=== PATIENT | female | born 1945 | race Caucasian/White ===

== ENCOUNTER → 2018-12-17 | Outpatient (REF) | payer MEDICARE, BC ==
[~2018-12-17] MED LIST: ALTACE10 MG PO; AMBIEN10 MG PO; AMLODIPINE5 MG PO; ASPIRIN ADULT L81 M2 PO; ASPIRIN LOW81 M1; AUGMENTIN500TAB PO; COLCHICINE0.6 M2 PO; COUMADIN2 MG PO; COUMADIN4 MG PO; CRESTOR10 MG PO; CRESTOR20 MG PO; CRESTOR5 MG; FISH OIL1000 MG PO; FLEXERIL OR; FLUARIX QUADRIV1 IN2 IM; FLUARIX QUADRIV1 INJ IM; GLIPIZIDE ER5 MG PO; GLUCOPHAGE500 MG PO; GLUCOSAMINE500 M1 PO; HYDROCHLOROT25 MG PO; LORTAB 7.5 PO; LORTAB 7.57.5 MG PO; LYRICA50 MG PO; MEDDOSEPAK PO; MELOXICAM15 MG PO; METFORMIN HCL1000 MG PO; METFORMIN500 MG PO; METOPROL TAR25 MG PO; MILK OF MAG30 ML/UDC PO; MULTI VIT PO; NAPROSYN500 MG OR; NICOTINE21 MG/24 H TD; RESTORIL15 MG PO; ROSUVASTATIN CA10 MG; SOMA350 MG PO; TRAMADOL HCL50 MG PO; VOLTAREN75 M1 PO; WAL-FEX D 1212 HOUR PO; XARELTO20 MG PO
[2018-12-17 08:29] LABS: HEMATOCRIT 43.9 % (37.0-47.0); HEMOGLOBIN 13.4 g/dl (12.0-16.0); MEAN CELL VOLUME 93.6 fL CALC (80.0-100.0); MEAN CORPUSCULAR HGB 28.6 pG CALC (26.0-32.0); MEAN CORPUSCULAR HGB CONC 30.5 g/L CALC (32.0-36.0); RED BLOOD COUNT 4.69 mill/uL (4.20-5.60); RED CELL DISTRI WIDTH 13.7 % (11.5-15.5)
[2018-12-17 09:05] LABS: ALBUMIN 3.6 g/dL (3.2-5.0); ALKALINE PHOSPHATASE 68 u/l (38-126); ANION GAP 13 (6-22 (CALC)); BILIRUBIN, TOTAL 0.4 mg/dL (0.0-1.4); BUN 20 mg/dL (8-23); BUN/CREATININE RATIO 25 (12-20 (CALC)); CALCULATED LDLCHOLESTEROL 34 mg/dL (62-129 (CALC)); CARBON DIOXIDE 26 mmol/l (22-30); CHLORIDE 104 mmol/l (95-108); CHOLESTEROL HDL RATIO 2.2 (<4.4 (CALC)); CREATININE 0.8 mg/dL (0.5-1.0); GFR > 60 ML/MIN (>=60 (CALC)); GFR FOR AFR.AMER. > 60 ML/MIN (>=60 (CALC)); HDL CHOLESTEROL 52 mg/dL (>=40); POTASSIUM 4.6 mmol/l (3.5-5.1); SGOT/AST 29 u/l (9-36); SODIUM 139 mmol/l (137-146); TOTAL CHOLESTEROL 115 mg/dl (0-199); TOTAL PROTEIN 6.1 g/dL (6.3-8.2); TOTAL TRIGLYCERIDES 144 mg/dl (30-149); VLDL CHOLESTROL 29 mg/dl (0-48 (CALC))
[2018-12-17 09:30] LABS: TSH, 3RD GENERATION 2.48 uIU/mL (0.47 - 4.68)
== END | disposition home or self-care (01) ==
LOC: LAB 06:53
PROVIDERS: ATTEND Nurse Practitioner
DX: D50.9 Iron deficiency anemia, unspecified (principal); E11.69 Type 2 diabetes mellitus with other specified complication; E78.2 Mixed hyperlipidemia; I10 Essential (primary) hypertension

== ENCOUNTER 2021-02-26 12:54 | Emergency (ER) | payer MEDICARE, BC ==
[~2021-02-26] VITALS: Ht 162.6 cm; Wt 90.0 kg
[~2021-02-26 12:54] MED LIST changes: -ROSUVASTATIN CA10 MG; +ROSUVASTATIN CA10 MG PO
[2021-02-26 15:54] LABS: IMMATURE GRANULOCYTES 0.2 % (0.0-5.0); MEAN CELL VOLUME 87.5 fL CALC (80.0-100.0); MEAN CORPUSCULAR HGB 27.9 pG CALC (26.0-32.0); MEAN CORPUSCULAR HGB CONC 31.9 g/dL CAL (32.0-36.0); NEUT# 5.61 thou/uL (2.00-7.15); RED BLOOD COUNT 5.37 mill/uL (4.20-5.60); RED CELL DISTRI WIDTH 13.9 % (11.5-15.5)
[2021-02-26 16:34] LABS: ALBUMIN 3.6 g/dL (3.2-5.0); ALKALINE PHOSPHATASE 68 u/l (38-126); ANION GAP 12 (6-22 (CALC)); BILIRUBIN, TOTAL 0.6 mg/dL (0.0-1.4); BUN 19 mg/dL (8-23); BUN/CREATININE RATIO 22 (12-20 (CALC)); CARBON DIOXIDE 27 mmol/l (22-30); CHLORIDE 101 mmol/l (95-108); CREATININE 0.9 mg/dL (0.5-1.0); GFR > 60 ML/MIN (>=60 (CALC)); GFR FOR AFR.AMER. > 60 ML/MIN (>=60 (CALC)); LIPASE 308 u/l (23-300); SGOT/AST 29 u/l (9-36); SODIUM 135 mmol/l (137-146); TOTAL PROTEIN 6.5 g/dL (6.3-8.2)
[2021-02-26 16:46] LABS: MYOGLOBIN 95 ng/mL (0 - 62)
[2021-02-26 17:00] VITALS: BP 145/77
[2021-02-26 18:01] LABS: URINE BLOOD DIPSTICK NEGATIVE (NEGATIVE); URINE COLOR YELLOW; URINE GLUCOSE - DIPSTICK NEGATIVE (NEGATIVE); URINE KETONE 15 mg/dL (NEGATIVE); URINE LEUK ESTERASE NEGATIVE (NEGATIVE); URINE PROTEIN - DIPSTICK 100 mg/dL (NEG-TRACE)
[2021-02-26 18:03] LABS: URINE BILIRUBIN - DIPSTICK NEGATIVE (NEGATIVE); URINE NITRITE - DIPSTICK NEGATIVE (Negative)
[2021-02-26 18:04] LABS: URINE RBC 0-2 RBC/hpf (0-5); URINE SQUAMOUS EPITHELIAL CELL FEW EPI/hpf (0-FEW); URINE WBC 0-2 WBC/hpf (0-5)
== END 2021-02-26 17:40 | disposition short-term general hospital (02) ==
LOC: ED 12:54
PROVIDERS: Emergency Medicine
DX: C79.31 Secondary malignant neoplasm of brain (principal); C34.90 Malignant neoplasm of unspecified part of unspecified bronchus or lung; G93.6 Cerebral edema; E11.9 Type 2 diabetes mellitus without complications; I25.10 Atherosclerotic heart disease of native coronary artery without angina pectoris; E78.5 Hyperlipidemia, unspecified; F17.200 Nicotine dependence, unspecified, uncomplicated; Z79.84 Long term (current) use of oral hypoglycemic drugs; Z86.711 Personal history of pulmonary embolism; Z86.74 Personal history of sudden cardiac arrest; Z79.01 Long term (current) use of anticoagulants; Z95.810 Presence of automatic (implantable) cardiac defibrillator; Z20.822 Contact with and (suspected) exposure to COVID-19

== ENCOUNTER 2021-04-06 03:36 | Observation (INO) | payer MEDICARE, BC, OTHER ==
[~2021-04-06] VITALS: Ht 162.6 cm; Wt 78.0 kg
--- NOTE | 2021-04-06 03:45 | NUR ---
PT TO ROOM BY EMS. A/O. PWD. VSS. TRIAGED AT BEDSIDE. BS [facility]. PT STATES HER NEIGHBOR KNOWS HER MEDS AND HX AND TO GET THE INFO FROM HER. NEIGHBOR NOT HERE YET. UNABLE TO DO MED REC AT THIS TIME.
--- NOTE | 2021-04-06 04:52 | NUR ---
[facility] PROVIDED THEN PT PLACED ON BED KU FOR URINE COLLECTION, URINE COLLECTED AND PORT URINE COLLECTION [facility] PROVIDED, PT TO RADIOLOGY AT THIS TIME
[2021-04-06 05:04] LABS: IMMATURE GRANULOCYTES 2.6 % (0.0-5.0); MEAN CORPUSCULAR HGB 28.4 pG CALC (26.0-32.0); MEAN CORPUSCULAR HGB CONC 35.2 g/dL CAL (32.0-36.0); NEUT# 14.29 thou/uL (2.00-7.15); RED BLOOD COUNT 4.4 mill/uL (4.20-5.60); RED CELL DISTRI WIDTH 12.8 % (11.5-15.5)
[2021-04-06 05:05] LABS: URINE BILIRUBIN - DIPSTICK NEGATIVE (NEGATIVE); URINE BLOOD DIPSTICK MODERATE (NEGATIVE); URINE COLOR YELLOW; URINE GLUCOSE - DIPSTICK >=1000 mg/dL (NEGATIVE); URINE KETONE 15 mg/dL (NEGATIVE); URINE PH 5.5 (4.5-8.0); URINE PROTEIN - DIPSTICK NEGATIVE (NEG-TRACE); URINE UROBILINOGEN - DIPSTICK 0.2 E.U./dL (0.2)
[2021-04-06 05:05] LABS: HEMATOCRIT 35.5 % (37.0-47.0); HEMOGLOBIN 12.5 g/dl (12.0-16.0); MEAN CELL VOLUME 80.7 fL CALC (80.0-100.0)
[2021-04-06 05:11] LABS: URINE NITRITE - DIPSTICK NEGATIVE (Negative)
[2021-04-06 05:12] LABS: URINE LEUK ESTERASE SMALL (NEGATIVE); URINE RBC 25-50 RBC/hpf (0-5)
[2021-04-06 05:13] LABS: URINE BACTERIA MODERATE hpf; URINE EPITHELIAL CELLS MODERATE EPI/hpf (0-FEW)
[2021-04-06 05:29] LABS: BILIRUBIN, TOTAL 0.5 mg/dL (0.0-1.4); CREATININE 1.3 mg/dL (0.5-1.0)
[2021-04-06 05:34] LABS: ALBUMIN 2.6 g/dL (3.2-5.0); POTASSIUM 5.3 mmol/l (3.5-5.1)
[2021-04-06 05:50] LABS: PROTHROMBIN TIME 10.3 SECONDS (9.0-12.5)
--- NOTE | 2021-04-06 06:04 | NUR ---
PT REMAINS IN RADIOLOGY MD AWARE OF ELEVATED BS PER LAB, WILL MEDICATE UPON RETURN FROM RADIOLOGUY
--- NOTE | 2021-04-06 06:45 | NUR ---
PT BACK FROM RADIOLOGY, MEDICATED ORDERED AND IVF INFUSING, NO NEW COMPLAINTS OFFERED, PT BACK ON BEDPAN, CALL UNDERWOOD WITHIN REACH, INSTRUCTED TO CALL WHEN DONE.
[2021-04-06 08:14] LABS: ANION GAP 14 (6-22 (CALC)); BUN 45 mg/dL (8-23); BUN/CREATININE RATIO 43 (12-20 (CALC)); CARBON DIOXIDE 14 mmol/l (22-30); CHLORIDE 104 mmol/l (95-108); GFR 54 ML/MIN (>=60 (CALC)); GFR FOR AFR.AMER. > 60 ML/MIN (>=60 (CALC)); SODIUM 127 mmol/l (137-146)
--- NOTE | 2021-04-06 08:20 | NUR ---
ACCUCHECK RESULTING IN CRICTICALLY HIGH. DR LEE NOTIFIED. ORDERED TO NOT REPEAT GLUCOSE LAB. ORDERS FOR COVERAGE TO BE OBTAINED
[2021-04-06] MEDS ORDERED: DEXAMETHASON4 MG PO (08:25)
[2021-04-06] MEDS ORDERED: ALTACE10 MG PO (08:25)
[2021-04-06] MEDS ORDERED: NORVASC5 M1 PO (08:26)
[2021-04-06] MEDS ORDERED: FAMOTIDINE20 M1 PO (08:26)
[2021-04-06] MEDS ORDERED: LASIX 20 MG TAB20 MG PO (08:26)
[2021-04-06] MEDS ORDERED: FERROUS SULF325 M3 PO (08:27)
--- NOTE | 2021-04-06 08:32 | NUR ---
report called to floor
--- NOTE | 2021-04-06 08:33 | NUR ---
PT ARRIVED TO [facility] ROOM 279 VIA STRETCHER ACCOMPAINED BY ER STAFF. PT AMBULATED TO BED WITH ASSISTANCE. PT IS A/O X3, FLAT AFFECT NOTED. ASSESSMENT AND VITALS COMPLETED. BP 125/61, HR 78, O2 96% ON ROOM AIR. RESPIRATIONS SHALLOW WITH NO DISTRESS. HEART RHYTH NORMAL WITH TELE IN PLACE, PACED PER ER MONITORING. 8613. BOWEL SOUNDS ARE ACTIVE, LAST BM 04/05/21. PEDAL PULSES WEAK. CUT NOTED UNDER RIGHT PINKY TOE, PHOTOS OBTAINED. PT REFUSES TO TURN TO ASCULTATE LUNG SOUNDS AND SKIN, STATES " I DONT HAVE ANY ENERGY."#22G RAC INFUSING WITH IVF PER ORDER, SITE REMAINS HEALTHY AND PATENT. #20G LW FLUSHED, SITE APPEARS HEALTHY AND PATENT. PT STATES SHE HAS PAIN IN RIGHT FOOT WHEN AMBULATING. PT STATES SHE WAS RECENTLY IN [facility] IN [facility]BRU[facility] FOR BRAIN TUMOR REMOVAL AND HAS RECIEVED HER LAST RADIATION FOR LUNG CANCER ON 04/05/21.FIGURE SKATER AWARE OF RECENT FALL AT HOME. PT INSTRUCTED TO CALL FOR ASSISTANCE BEFORE GETTING OUT OF BED. PT VERBALIZED UNDERSTANDING. NKDA NOTED, FALL RISK AND ALLERGY BAND APPLIED. PT DENIES OF ANY NEEDS AT THIS TIME. DIETARY CALLED FOR BREAKFAST TRAY. ALL SAFETY PRECAUTIONS ARE IN PLACE WITH CALL LIGHT IN REACH. WILL CONTINUE TO MONITOR.
--- NOTE | 2021-04-06 08:40 | NUR ---
ACCUCHECK RESULTING IN CRICTICALLY HIGH. DR LEE NOTIFIED. ORDERED TO NOT REPEAT GLUCOSE LAB. ORDERS FOR COVERAGE TO BE OBTAINED
--- NOTE | 2021-04-06 09:14 | NUR ---
DR LEE AT BEDSIDE
[2021-04-06 11:00] VITALS: BP 125/61
--- NOTE | 2021-04-06 12:06 | NUR ---
PT RESTING IN SEMI FOWLERS POSITION. PT REMAINS A/O X3. RESPIRATIONS EVEN AND UNLABORED. #22G RA INFUSING WITH IVF PER ORDER, SITE REMAINS HEALTHY AND PATENT. PUREWHICK CATH APPLIED. PT TOLERATING WELL. ACCUCHECK REMAINS CRITICALLY HIGH. REX SANCHEZRP NOTIFIED. SCHEDULED COVERAGE ADMINISTERED.TELE -MONTORING IN PLACE. ALL SAFETY PERCAUTIONS ARE IN PLACE. WILL CONTINUE TO MONITOR.
--- NOTE | 2021-04-06 13:22 | NUR ---
REASSESSMENT OF ACCUCHECK RESULTING IN 443. REX SANCHEZRP NOTIFIED. NO NEW ORDERS OBTAINED. NEIGHBOR AT BEDSIDE. WILL CONTINUE TO MONITOR.
[2021-04-06 14:51] VITALS: BP 107/58
--- NOTE | 2021-04-06 15:49 | NUR ---
PT SLEEPING IN LOW FOWLERS POSITION. RESPIRATIONS ARE EVEN AND UNLABORED WITH NO DISTRESS NOTED. #20G RAC REMAINS IN PLACE. #20G EMS LW INFUSING WITH IVF PER ORDER, SITE REMAINS HEALTHY AND PATENT. TELE MONITORING IN PLACE. NO SIGNS OF ANY PAINS OR DISCOMFORTS. ALL SAFETY PRECAUTIONS ARE IN PLACE. WILL CONTINUE TO MONITOR.
--- NOTE | 2021-04-06 17:10 | NUR ---
ACCUCHECK REMARYING IN 270. COVERAGE ADMINISTERED. PT DENIES OF ANY NEEDS. WILL CONTINUE TO MONITOR
[2021-04-06 19:00] VITALS: BP 116/64
--- NOTE | 2021-04-06 19:10 | NUR ---
REPORT RECEIVED FROM Gian MCHUGH LPN, CARE OF PT ASSUMED AT THIS TIME.
--- NOTE | 2021-04-06 20:00 | NUR ---
POINT OF CARE GLUCOSE 225 mg/dl REPORTED BY Eugenio GOODRICH CNA.
--- NOTE | 2021-04-06 20:30 | NUR ---
PT SITTING UP AT SIDE OF BED. L-WRIST #20G IV LEAKING. DRESSING REMOVED. CATHETER TIGHTENED AND NEW DRESSING APPLIED. IV PATENT, FLUSHES WELL WITH GOOD BLOOD RETURN/ NO FURTHER LEAKING NOTED AT THIS TIME. IV INFUSING NS @ 75ML/H. PHYSICAL ASSESMENT COMPLETED, SEE SHIFT ASSESMENT. TELE #[id number] ON, RYTHM PACED AT 77 REPORTED BY Janet PLATT, OPTOMETRIC AIDE. PLAN OF CARE REVIEWED WITH PT, PT VERBALIZES UNDERSTANDING. PT ASSISTED TO BSC AND ASSITED BACK TO BED BY Eugenio GOODRICH CNA. SMALL SOLID BM REPORTED. PT DENIES FURTHER NEEDS AT THIS TIME. CALL UNDERWOOD WITHIN REACH, AGREES TO CALL PRN.
--- NOTE | 2021-04-06 21:10 | NUR ---
SCHEDULED MEDICATIONS ADMINISTERED, SEE E-MAR. PT DENIES FURTHER NEEDS AT THIS TIME. CALL UNDERWOOD WITHIN REACH, AGREES TO CALL PRN.
[2021-04-07] VITALS: BP 100/61
--- NOTE | 2021-04-07 01:09 | NUR ---
PT APPEARS TO BE SLEEPING COMFORTABLY. LAYING IN BED, EYES CLOSED, SNORING GENTLY. RESPIRATIONS REGULAR AND UNLABORED. CALL UNDERWOOD REMAINS WITHIN REACH.
--- NOTE | 2021-04-07 01:58 | NUR ---
PT ASSITED TO BSC AND BACK TO BED.
--- NOTE | 2021-04-07 01:59 | NUR ---
WARM BLANKET PROVIDED, PT DENIES FURTHER NEEDS AT THIS TIME. CALL UNDERWOOD WITHIN REACH.
[2021-04-07 04:00] VITALS: BP 107/54
--- NOTE | 2021-04-07 04:50 | NUR ---
Cammy BUITRAGO FORESTRY FIRE AID IN ROOM COLLECTING BLOOD WORK.
[2021-04-07 06:07] LABS: HEMOGLOBIN 11.6 g/dl (12.0-16.0); MEAN CELL VOLUME 80.7 fL CALC (80.0-100.0); MEAN CORPUSCULAR HGB 28.4 pG CALC (26.0-32.0); MEAN CORPUSCULAR HGB CONC 35.2 g/dL CAL (32.0-36.0); RED BLOOD COUNT 4.09 mill/uL (4.20-5.60); RED CELL DISTRI WIDTH 12.9 % (11.5-15.5)
[2021-04-07 06:16] LABS: ANION GAP 7 (6-22 (CALC)); BUN 32 mg/dL (8-23); BUN/CREATININE RATIO 44 (12-20 (CALC)); CHLORIDE 104 mmol/l (95-108); CREATININE 0.7 mg/dL (0.5-1.0); GFR > 60 ML/MIN (>=60 (CALC)); GFR FOR AFR.AMER. > 60 ML/MIN (>=60 (CALC)); MAGNESIUM 1.8 mg/dL (1.6-2.3); POTASSIUM 4.1 mmol/l (3.5-5.1); SODIUM 129 mmol/l (137-146)
[2021-04-07 06:19] LABS: CARBON DIOXIDE 22 mmol/l (22-30)
[2021-04-07 07:30] VITALS: BP 105/45
[2021-04-07 12:18] VITALS: BP 113/54
--- NOTE | 2021-04-07 12:19 | NUR ---
PT SITTING IN BED EATING LUNCH. NO NEEDS AT THIS TIME. CALL LIGHT WITHIN REACH.
--- NOTE | 2021-04-07 14:40 | NUR ---
IV FOUND DISLODGED. IV INTACT. X2 ATTEMPTS, UNSUCCESSFUL. AWAITING ED TO ATTEMPT IV PLACEMENT. D IRASEMA MEDINA NOTIFIED.
--- NOTE | 2021-04-07 16:00 | NUR ---
PT SLEEPING IN BED. NO DISTRESS NOTED. CALL LIGHT WITHIN REACH.
[2021-04-07 18:57] VITALS: BP 116/62
--- NOTE | 2021-04-07 19:00 | NUR ---
REPORT RECEIVED FROM Patricia TUCKER RN, CARE OF PT ASSUMED AT THIS TIME.
--- NOTE | 2021-04-07 19:40 | NUR ---
PT LAYING IN BED WATCHING TV. STATES SHE'S FEELING BETTER TODAY. PHYSICAL ASSESMENT COMPLETED, SEE SHIFT ASSESMENT. R-HAND IV SITE PATENT AND INFUSING NS@75ML/H. SECURED WITH ELASTIC NETTING. PACED ON TELE #[id number] REPORTED BY ED HEALTHCARE ADVISORY SERVICES MANAGER. PUREWICK EXTERNAL CATHETER IN PLACE LO LWS, DRAINING CLEAR YELLOW URINE. ECCHYMOSIS TO L-KNEE. PT REQUEST ASSISTANCE TO TURN ONTO R-SIDE. PT ASSISTED TO R-SIDE LYING POSITION. DENIES FURTHER NEEDS AT THIS TIME. PLAN OF CARE REVIEWED, PT VERBALIZES UNDERSTANDING. CALL UNDERWOOD WITHIN REACH, AGREES TO CALL PRN.
--- NOTE | 2021-04-07 20:00 | NUR ---
POINT OF CARE GLUCOSE 372mg/dl REPORTED BY Janet COHEN CNA.
--- NOTE | 2021-04-07 21:05 | NUR ---
SCHEDULED MEDICATION ADMINISTERED, PRN ULTRAM ADMINISTERED, SEE E-MAR.
[2021-04-07 23:30] VITALS: BP 120/61
[2021-04-08 04:00] VITALS: BP 116/68
--- NOTE | 2021-04-08 04:18 | NUR ---
Minerva BAER DIRECTOR VETERINARY IN ROOM TO COLLECT LAB WORK.
[2021-04-08 05:03] LABS: HEMATOCRIT 33.3 % (37.0-47.0); HEMOGLOBIN 11.7 g/dl (12.0-16.0); MEAN CELL VOLUME 81.2 fL CALC (80.0-100.0); MEAN CORPUSCULAR HGB 28.5 pG CALC (26.0-32.0); MEAN CORPUSCULAR HGB CONC 35.1 g/dL CAL (32.0-36.0); RED BLOOD COUNT 4.1 mill/uL (4.20-5.60); RED CELL DISTRI WIDTH 13.2 % (11.5-15.5)
[2021-04-08 05:27] LABS: ANION GAP 7 (6-22 (CALC)); BUN 20 mg/dL (8-23); BUN/CREATININE RATIO 33 (12-20 (CALC)); CARBON DIOXIDE 23 mmol/l (22-30); CHLORIDE 101 mmol/l (95-108); CREATININE 0.6 mg/dL (0.5-1.0); GFR > 60 ML/MIN (>=60 (CALC)); GFR FOR AFR.AMER. > 60 ML/MIN (>=60 (CALC)); MAGNESIUM 1.6 mg/dL (1.6-2.3); POTASSIUM 3.8 mmol/l (3.5-5.1); SODIUM 128 mmol/l (137-146)
[2021-04-08 07:40] VITALS: BP 135/70
--- NOTE | 2021-04-08 07:40 | NUR ---
PT LAYING IN BED SLEEP. VITALS AND ASSESSMENT DONE. ALERT AND ORIENTED. LUNGS SOUNDS CLEAR. S1 AND S2 HEARD. PEDAL PULSES BILATERALLY AND EQUALLY STRONG. IV PATENT. NO DISTRESS NOTED.
--- NOTE | 2021-04-08 09:30 | NUR ---
Dakota WRIGHT APRN AND DR VILLAFUERTE AT BEDSIDE DISCUSSING POC
[2021-04-08] MEDS ORDERED: SOD CHLORIDE1 G2 PO (09:45)
[2021-04-08] MEDS ORDERED: OMNICEF300 MG PO (09:45)
[2021-04-08] MEDS ORDERED: LEVEMIR100 UNIT SC (09:47)
--- NOTE | 2021-04-08 10:00 | NUR ---
PHYSICAL THERAPY AT BEDSIDE FOR DAILY EVAL
[2021-04-08 11:00] VITALS: BP 122/58
--- NOTE | 2021-04-08 11:15 | NUR ---
Physical Therapy Note: Patient was seen and treated today. Patient identified by full name and date of . Physical Therapy Management: 1. Ankle pumping exercises x 10 repetitions 2. Quad-setting exercises x 10 repetitions 3. Straight leg raise x 5 repetitions 4. Supine to sit, sit to supine 5. Sit to stand and stand to sit 6. Sitting tolerance exercises x 5-10 minutes 7. AROME of the UE x 5-10 repetitions 8. AROME of the LE x 5-10 repetitions 9. Bed to chair transfer. Patient tolerated management well without incidence of dizziness. Patient decised to stay sitting on the recliner after the end of physical therapy session. Call button within patient's reach.
--- NOTE | 2021-04-08 11:50 | NUR ---
PATIENT SITTING IN CHAIR. NO DISTRESS NOTED. CALL LIGHT WITHIN REACH.
--- NOTE | 2021-04-08 12:56 | NUR ---
PER N DAREN RN, PTS HR SUSTAINING [phone]. D IRASEMA BRANTLEYN NOTIFIED, ORDERS FOR 5MG METOPROLOL IV X1 DOSE REC. ORDER WRITTEN AND FAXED TO PHARMACY
--- NOTE | 2021-04-08 13:40 | NUR ---
PER Brandy MERCEDES RN, PT SUSTAINING WITH PACE HR AT [phone].
[2021-04-08 14:53] VITALS: BP 123/55
--- NOTE | 2021-04-08 16:10 | NUR ---
PT LAYING IN BED. NO DISTRESS NOTED. CALL LIGHT WITHIN REACH
--- NOTE | 2021-04-08 16:27 | NUR ---
Discharge instructions given. Patient verbalizes understanding of same. Discharged in stable condition via Medical Transport to [facility] with staff. All belongings sent with pt. PATIENT DENIES HAVING ANYTHING IN HOSPITAL SAFE.
--- NOTE | 2021-04-08 16:55 | NUR ---
REPORT GIVEN TO [facility]
== END 2021-04-08 16:27 ==
LOC: ED 03:36 → ED-I 07:50 → ED 08:10 → MS2 08:11
PROVIDERS: Family Medicine; Nurse Practitioner; ADMIT Internal Medicine; ATTEND Internal Medicine
DX: N39.0 Urinary tract infection, site not specified (principal); E11.65 Type 2 diabetes mellitus with hyperglycemia; N17.9 Acute kidney failure, unspecified; E87.1 Hypo-osmolality and hyponatremia; E87.5 Hyperkalemia; E86.0 Dehydration; I11.0 Hypertensive heart disease with heart failure; I50.9 Heart failure, unspecified; E11.40 Type 2 diabetes mellitus with diabetic neuropathy, unspecified; T38.0X5A Adverse effect of glucocorticoids and synthetic analogues, initial encounter; S20.212A Contusion of left front wall of thorax, initial encounter; S80.02XA Contusion of left knee, initial encounter; C34.90 Malignant neoplasm of unspecified part of unspecified bronchus or lung; C79.31 Secondary malignant neoplasm of brain; I25.10 Atherosclerotic heart disease of native coronary artery without angina pectoris; I48.91 Unspecified atrial fibrillation; E78.5 Hyperlipidemia, unspecified; F17.200 Nicotine dependence, unspecified, uncomplicated; B96.20 Unspecified Escherichia coli [E. coli] as the cause of diseases classified elsewhere; W18.30XA Fall on same level, unspecified, initial encounter; Y92.002 Bathroom of unspecified non-institutional (private) residence as the place of occurrence of the external cause; Z91.81 History of falling; Z79.52 Long term (current) use of systemic steroids; Z86.74 Personal history of sudden cardiac arrest; Z95.810 Presence of automatic (implantable) cardiac defibrillator; Z86.711 Personal history of pulmonary embolism; Z79.84 Long term (current) use of oral hypoglycemic drugs; Z20.822 Contact with and (suspected) exposure to COVID-19
CPT/HCPCS: G0378; Q9967

== ENCOUNTER 2021-08-28 09:47 | Observation (INO) | payer MEDICARE, BC ==
[~2021-08-28] VITALS: Ht 162.6 cm; Wt 74.3 kg
[~2021-08-28 09:47] MED LIST changes: +DEXAMETHASON4 MG PO; +FAMOTIDINE20 M1 PO; +FERROUS SULF325 M3 PO; +LASIX 20 MG TAB20 MG PO; +LEVEMIR100 UNIT SC; +NORVASC5 M1 PO; +OMNICEF300 MG PO; +SOD CHLORIDE1 G2 PO
[2021-08-28 10:51] LABS: GFR > 60 ML/MIN (>=60 (CALC)); GFR FOR AFR.AMER. > 60 ML/MIN (>=60 (CALC))
[2021-08-28 10:54] LABS: HEMATOCRIT 38.5 % (37.0-47.0); HEMOGLOBIN 13.4 g/dl (12.0-16.0); IMMATURE GRANULOCYTES 0.5 % (0.0-5.0); MEAN CELL VOLUME 85.9 fL CALC (80.0-100.0); MEAN CORPUSCULAR HGB 29.9 pG CALC (26.0-32.0); MEAN CORPUSCULAR HGB CONC 34.8 g/dL CAL (32.0-36.0); NEUT# 9.24 thou/uL (2.00-7.15); RED BLOOD COUNT 4.48 mill/uL (4.20-5.60); RED CELL DISTRI WIDTH 15.2 % (11.5-15.5)
[2021-08-28 11:10] LABS: ALBUMIN 2.9 g/dL (3.2-5.0); ALKALINE PHOSPHATASE 86 u/l (38-126); ANION GAP 14 (6-22 (CALC)); BUN 15 mg/dL (8-23); BUN/CREATININE RATIO 17 (12-20 (CALC)); CARBON DIOXIDE 26 mmol/l (22-30); CHLORIDE 94 mmol/l (95-108); CREATININE 0.8 mg/dL (0.5-1.0); GFR > 60 ML/MIN (>=60 (CALC)); GFR FOR AFR.AMER. > 60 ML/MIN (>=60 (CALC)); LIPASE 40 u/l (23-300); POTASSIUM 2.7 mmol/l (3.5-5.1); SGOT/AST 18 u/l (9-36); SODIUM 132 mmol/l (137-146); TOTAL PROTEIN 5.4 g/dL (6.3-8.2)
[2021-08-28] MEDS ORDERED: FARXIGA10 MG PO (13:38)
[2021-08-28] MEDS ORDERED: LEVEMIR100 UNIT SC (13:39)
[2021-08-28] MEDS ORDERED: OZEMPIC2 MG/1.5 M SC (13:39)
[2021-08-28 16:05] VITALS: BP 113/64
[2021-08-28 19:00] VITALS: BP 114/66
[2021-08-29] VITALS: BP 130/58
[2021-08-29 00:46] LABS: URINE BLOOD DIPSTICK TRACE-INTACT (NEGATIVE); URINE COLOR YELLOW; URINE GLUCOSE - DIPSTICK 500 mg/dL (NEGATIVE); URINE KETONE 15 mg/dL (NEGATIVE); URINE LEUK ESTERASE NEGATIVE (NEGATIVE); URINE PROTEIN - DIPSTICK 100 mg/dL (NEG-TRACE); URINE UROBILINOGEN - DIPSTICK 0.2 E.U./dL (0.2)
[2021-08-29 00:53] LABS: URINE BILIRUBIN - DIPSTICK MODERATE (NEGATIVE); URINE NITRITE - DIPSTICK NEGATIVE (Negative)
[2021-08-29 00:56] LABS: URINE BACTERIA MANY hpf; URINE SQUAMOUS EPITHELIAL CELL FEW EPI/hpf (0-FEW); URINE WBC 20-50 WBC/hpf (0-5)
[2021-08-29 04:00] VITALS: BP 126/74
[2021-08-29 04:59] LABS: HEMATOCRIT 34.6 % (37.0-47.0); HEMOGLOBIN 11.7 g/dl (12.0-16.0); IMMATURE GRANULOCYTES 0.5 % (0.0-5.0); MEAN CELL VOLUME 87.8 fL CALC (80.0-100.0); MEAN CORPUSCULAR HGB 29.7 pG CALC (26.0-32.0); MEAN CORPUSCULAR HGB CONC 33.8 g/dL CAL (32.0-36.0); NEUT# 5.43 thou/uL (2.00-7.15); RED BLOOD COUNT 3.94 mill/uL (4.20-5.60); RED CELL DISTRI WIDTH 15.4 % (11.5-15.5)
[2021-08-29 05:17] LABS: BUN 13 mg/dL (8-23); BUN/CREATININE RATIO 19 (12-20 (CALC)); CHLORIDE 102 mmol/l (95-108); CREATININE 0.7 mg/dL (0.5-1.0); GFR > 60 ML/MIN (>=60 (CALC)); GFR FOR AFR.AMER. > 60 ML/MIN (>=60 (CALC)); POTASSIUM 3.1 mmol/l (3.5-5.1); SODIUM 134 mmol/l (137-146)
[2021-08-29 05:18] LABS: ANION GAP 3 (6-22 (CALC)); CARBON DIOXIDE 32 mmol/l (22-30)
[2021-08-29 08:08] VITALS: BP 126/57
[2021-08-29 10:38] VITALS: BP 122/61
[2021-08-29] MEDS ORDERED: METRONIDAZOLE500 MG PO (11:28)
[2021-08-29] MEDS ORDERED: CIPROFLOXACN500 MG PO (11:29)
[2021-08-29] MEDS ORDERED: ZOFRAN4 MG/TAB PO (11:29)
== END 2021-08-29 12:59 | disposition home or self-care (01) ==
LOC: ED 09:47 → ED-I 12:35 → ED 13:21 → MS2 13:22
PROVIDERS: Family Medicine; ADMIT Internal Medicine; ATTEND Internal Medicine
DX: K52.9 Noninfective gastroenteritis and colitis, unspecified (principal); E87.6 Hypokalemia; N28.89 Other specified disorders of kidney and ureter; C34.91 Malignant neoplasm of unspecified part of right bronchus or lung; C79.31 Secondary malignant neoplasm of brain; I11.0 Hypertensive heart disease with heart failure; I50.9 Heart failure, unspecified; E11.40 Type 2 diabetes mellitus with diabetic neuropathy, unspecified; I25.10 Atherosclerotic heart disease of native coronary artery without angina pectoris; E78.5 Hyperlipidemia, unspecified; Z92.3 Personal history of irradiation; Z86.711 Personal history of pulmonary embolism; Z95.810 Presence of automatic (implantable) cardiac defibrillator; Z86.74 Personal history of sudden cardiac arrest; Z79.899 Other long term (current) drug therapy; Z79.84 Long term (current) use of oral hypoglycemic drugs; Z79.4 Long term (current) use of insulin; Z20.822 Contact with and (suspected) exposure to COVID-19
CPT/HCPCS: G0378; J3475; Q9967

== ENCOUNTER 2021-11-03 11:37 | Emergency (ER) | payer MEDICARE, BC, OTHER ==
[~2021-11-03] VITALS: Ht 162.6 cm; Wt 72.0 kg
[~2021-11-03 11:37] MED LIST changes: +AMLODIPINE BESY10 MG PO; +CIPROFLOXACN500 MG PO; +FARXIGA10 MG PO; +METRONIDAZOLE500 MG PO; -NORVASC5 M1 PO; +OZEMPIC2 MG/1.5 M SC; +ZOFRAN4 MG/TAB PO
[2021-11-03] MEDS ORDERED: OXYCODO-APAP1 TA2 PO (12:34)
[2021-11-03] MEDS ORDERED: ASPIRIN 81 LOW81 MG PO (12:36)
[2021-11-03 14:30] LABS: IMMATURE GRANULOCYTES 0.3 % (0.0-5.0); MEAN CORPUSCULAR HGB 29.1 pG CALC (26.0-32.0); MEAN CORPUSCULAR HGB CONC 31.6 g/dL CAL (32.0-36.0); RED BLOOD COUNT 4.75 mill/uL (4.20-5.60); RED CELL DISTRI WIDTH 14.9 % (11.5-15.5)
[2021-11-03 14:33] LABS: HEMATOCRIT 43.7 % (37.0-47.0); HEMOGLOBIN 13.8 g/dl (12.0-16.0)
[2021-11-03 14:42] LABS: ALKALINE PHOSPHATASE 69 u/l (38-126); AMYLASE 78 u/l (30-110); BILIRUBIN, TOTAL 0.8 mg/dL (0.0-1.4); BUN 14 mg/dL (8-23); BUN/CREATININE RATIO 20 (12-20 (CALC)); CHLORIDE 100 mmol/l (95-108); CREATININE 0.7 mg/dL (0.5-1.0); GFR > 60 ML/MIN (>=60 (CALC)); GFR FOR AFR.AMER. > 60 ML/MIN (>=60 (CALC)); LIPASE 51 u/l (23-300); POTASSIUM 3.3 mmol/l (3.5-5.1); SGOT/AST 28 u/l (9-36); SODIUM 136 mmol/l (137-146); TOTAL PROTEIN 6.4 g/dL (6.3-8.2)
[2021-11-03 14:43] LABS: ACT PARTIAL THROMBO TIME 22.8 SECONDS (20.0-32.5); ALBUMIN 3.5 g/dL (3.2-5.0); ANION GAP 16 (6-22 (CALC)); CARBON DIOXIDE 23 mmol/l (22-30); INTERNATIONAL NORMALIZED RATIO 1.1 RATIO (0.7-1.3)
[2021-11-03 18:50] VITALS: BP 127/56
== END 2021-11-03 18:50 | disposition home or self-care (01) ==
LOC: ED 11:37
DX: R11.2 Nausea with vomiting, unspecified (principal); R19.7 Diarrhea, unspecified; E87.6 Hypokalemia; C34.90 Malignant neoplasm of unspecified part of unspecified bronchus or lung; C79.31 Secondary malignant neoplasm of brain; E11.9 Type 2 diabetes mellitus without complications; E78.5 Hyperlipidemia, unspecified; I25.10 Atherosclerotic heart disease of native coronary artery without angina pectoris; F17.200 Nicotine dependence, unspecified, uncomplicated; Z86.711 Personal history of pulmonary embolism; Z86.74 Personal history of sudden cardiac arrest; Z95.810 Presence of automatic (implantable) cardiac defibrillator; Z79.84 Long term (current) use of oral hypoglycemic drugs; Z79.899 Other long term (current) drug therapy; Z20.822 Contact with and (suspected) exposure to COVID-19
CPT/HCPCS: J2997

== ENCOUNTER 2022-04-20 12:40 | Observation (INO) | payer MEDICARE, BC, OTHER ==
[~2022-04-20] VITALS: Ht 162.6 cm; Wt 64.0 kg
[2022-04-20] VITALS (15 sets, daily range): BP systolic 102–145; BP diastolic 37–65
[~2022-04-20 12:40] MED LIST changes: +ASPIRIN 81 LOW81 MG PO; +OXYCODO-APAP1 TA2 PO
--- NOTE | 2022-04-20 12:40 | NUR ---
PT TO ROOM FOR TRIAGE
[2022-04-20 13:37] LABS: HEMATOCRIT 39.8 % (37.0-47.0); HEMOGLOBIN 13.1 g/dl (12.0-16.0); IMMATURE GRANULOCYTES 0.3 % (0.0-5.0); MEAN CORPUSCULAR HGB 28.8 pG CALC (26.0-32.0); MEAN CORPUSCULAR HGB CONC 32.9 g/dL CAL (32.0-36.0); NEUT# 5.28 thou/uL (2.00-7.15); RED BLOOD COUNT 4.55 mill/uL (4.20-5.60); RED CELL DISTRI WIDTH 14.3 % (11.5-15.5)
[2022-04-20 13:43] LABS: GFR FOR AFR.AMER. > 60 ML/MIN (>=60 (CALC)); GFR OTHER RACES > 60 ML/MIN (>=60 (CALC))
[2022-04-20 13:44] LABS: MEAN CELL VOLUME 87.5 fL CALC (80.0-100.0)
[2022-04-20 13:55] LABS: ALKALINE PHOSPHATASE 64 u/l (38-126); BILIRUBIN, TOTAL 0.4 mg/dL (0.0-1.4); BUN 13 mg/dL (8-23); BUN/CREATININE RATIO 19 (12-20 (CALC)); CARBON DIOXIDE 26 mmol/l (22-30); CHLORIDE 101 mmol/l (95-108); CREATININE 0.7 mg/dL (0.5-1.0); LIPASE 44 u/l (23-300); SGOT/AST 17 u/l (9-36); SODIUM 134 mmol/l (137-146); TOTAL PROTEIN 5.2 g/dL (6.3-8.2)
[2022-04-20 14:00] LABS: ANION GAP 10 (6-22 (CALC)); POTASSIUM 3.1 mmol/l (3.5-5.1)
[2022-04-20] MEDS ORDERED: OMEPRAZOLE DR20 MG PO (17:39)
[2022-04-20] MEDS ORDERED: OZEMPIC2 MG/1.5 M IJ (17:40)
[2022-04-20] MEDS ORDERED: FARXIGA10 MG PO (17:42)
--- NOTE | 2022-04-20 17:49 | NUR ---
PT MEDICATED PER DEC; ASSISTED TO BR WITH WALKER WITH STEADY GAIT
--- NOTE | 2022-04-20 19:35 | NUR ---
PT XFER TO RM 280 BEDSIDE REPORT GIVEN. PT VSS
--- NOTE | 2022-04-20 19:45 | NUR ---
PATIENT TRANSPORTED TO UNIT @ 194 VIA WHEELCHAIR. PATIENT SELF TRANFERRED TO BED. AOX3; NO DISTRESS NOTED. VSS. PT HAS NO COMPLAINTS OF PAIN @ THIS TIME. PT ORIENTED TO ROOM AND CALL UNDERWOOD. FALL PRECAUTION EDUCATION PROVIDED. PATIENT STATES UNDERSTANDING. PATIENT REQUESTED SOMETHING TO EAT. EDUCATED PATIENT ON NPO DIET AND POSSIBLE SIDE EFFECTS OF ADHERING TO NPO ORDER. PATIENT STATES UNDERSTANDING. NO FURTHER QUESTIONS OR CONCERNS AT THIS TIME.
[2022-04-20 20:28] LABS: URINE BILIRUBIN - DIPSTICK NEGATIVE (NEGATIVE); URINE BLOOD DIPSTICK NEGATIVE (NEGATIVE); URINE COLOR YELLOW; URINE GLUCOSE - DIPSTICK NEGATIVE (NEGATIVE); URINE KETONE 40 mg/dL (NEGATIVE); URINE LEUK ESTERASE NEGATIVE (NEGATIVE); URINE PH 6.5 (4.5-8.0); URINE PROTEIN - DIPSTICK 30 mg/dL (NEG-TRACE); URINE SPECIFIC GRAVITY 1.015; URINE UROBILINOGEN - DIPSTICK 0.2 E.U./dL (0.2)
[2022-04-20 20:32] LABS: URINE NITRITE - DIPSTICK NEGATIVE (Negative)
[2022-04-20 20:33] LABS: URINE SQUAMOUS EPITHELIAL CELL FEW EPI/hpf (0-FEW)
--- NOTE | 2022-04-21 00:52 | NUR ---
PATIENT SLEEPING AT THIS TIME. NO DISTRESS NOTED. FALL PRECAUTIONS IN PLACE.
[2022-04-21 03:46] VITALS: BP 136/46
--- NOTE | 2022-04-21 04:51 | NUR ---
PATIENT C/O PAIN IN ABD RATED 6/10. EDUCATED PATIENT ON NEXT DOSE TIME FOR PAIN MEDICATION. PATIENT REPOSITIONED TO RELIEVE PAIN.
[2022-04-21 04:57] VITALS: BP 136/46
[2022-04-21 05:50] LABS: HEMATOCRIT 37.8 % (37.0-47.0); HEMOGLOBIN 12.3 g/dl (12.0-16.0); MEAN CELL VOLUME 88.9 fL CALC (80.0-100.0); MEAN CORPUSCULAR HGB 28.9 pG CALC (26.0-32.0); MEAN CORPUSCULAR HGB CONC 32.5 g/dL CAL (32.0-36.0); RED BLOOD COUNT 4.25 mill/uL (4.20-5.60); RED CELL DISTRI WIDTH 14.5 % (11.5-15.5)
[2022-04-21 06:20] VITALS: BP 122/43
[2022-04-21 06:38] LABS: ANION GAP 7 (6-22 (CALC)); BUN 9 mg/dL (8-23); BUN/CREATININE RATIO 13 (12-20 (CALC)); CARBON DIOXIDE 26 mmol/l (22-30); CHLORIDE 106 mmol/l (95-108); CREATININE 0.7 mg/dL (0.5-1.0); GFR FOR AFR.AMER. > 60 ML/MIN (>=60 (CALC)); GFR OTHER RACES > 60 ML/MIN (>=60 (CALC)); MAGNESIUM 1.5 mg/dL (1.6-2.3); POTASSIUM 3.1 mmol/l (3.5-5.1); SODIUM 137 mmol/l (137-146)
--- NOTE | 2022-04-21 07:00 | NUR ---
RECEIVE REPORT FROM VIET BERNSTEIN.
--- NOTE | 2022-04-21 08:00 | NUR ---
PATIENT ALERT AND ORIENTED X3. VITAL SIGNS STABLE AT THIS TIME. PATIENT RESTING IN BED PLEASANT. PT IS EDUCATED ABOUD MEDICATIONS AND NURSING PLAN FOR TODAY. SHE REFER UNDERSTAND. FALL AND SAFETY PRECAUTIONS IN PLACE. CALL LIGHT WITHIN REACH.
[2022-04-21 10:39] VITALS: BP 121/50
[2022-04-21] MEDS ORDERED: ACID CONTROL MA20 MG PO (11:54)
[2022-04-21] MEDS ORDERED: ZOFRAN4 MG/TAB PO (11:54)
[2022-04-21] MEDS ORDERED: TRAMADOL HYDROC50 M1 PO (11:54)
[2022-04-21] MEDS ORDERED: M2 MAGNESIUM100 MG PO (11:55)
[2022-04-21] MEDS ORDERED: VITAMIN D1000 UNIT PO (11:55)
--- NOTE | 2022-04-21 12:22 | NUR ---
PATIENT RESTING IN BED. STABLE AT THIS TIME.
--- NOTE | 2022-04-21 13:29 | NUR ---
PATIENT IS DISCHARGED STABLE AT THIS TIME. PT IS EDUCATED ABOUD MEDICATIONS AT HOME AND DOCTORS FOLLOW UP. PT REFER UNDERSTAND.
== END 2022-04-21 13:11 | disposition home or self-care (01) ==
LOC: ED 12:40 → ED-I 16:30 → ED 17:02 → MS2 17:03
PROVIDERS: Family Medicine; ADMIT Hospitalist; ATTEND Hospitalist
DX: R11.2 Nausea with vomiting, unspecified (principal); R10.9 Unspecified abdominal pain; R19.7 Diarrhea, unspecified; E87.6 Hypokalemia; C34.90 Malignant neoplasm of unspecified part of unspecified bronchus or lung; C79.31 Secondary malignant neoplasm of brain; I11.0 Hypertensive heart disease with heart failure; I50.9 Heart failure, unspecified; E11.40 Type 2 diabetes mellitus with diabetic neuropathy, unspecified; K57.30 Diverticulosis of large intestine without perforation or abscess without bleeding; I25.10 Atherosclerotic heart disease of native coronary artery without angina pectoris; E78.5 Hyperlipidemia, unspecified; F17.200 Nicotine dependence, unspecified, uncomplicated; Z86.711 Personal history of pulmonary embolism; Z86.74 Personal history of sudden cardiac arrest; Z79.899 Other long term (current) drug therapy; Z20.822 Contact with and (suspected) exposure to COVID-19; Z95.810 Presence of automatic (implantable) cardiac defibrillator
CPT/HCPCS: G0378; Q9967; S0164